=== PATIENT | male | born 1955 | race Caucasian/White ===

== ENCOUNTER 2025-01-29 14:03 | Inpatient (IN) | payer OTHER ==
[~2025-01-29] VITALS: Ht 170.2 cm; Wt 95.1 kg
--- NOTE | 2025-01-29 14:25 | ED.PDOC ---
History of Present Illness HPI Comments 69 year old male brought in by EMS presents to the ED with a chief complaint of elevated troponin onset today. Per EMS, patient was at [facility] urgent care, elevated troponin of 0.94 with upper limit of .05, was transferred to ED. Patient states he is experiencing back pain, radiates to neck, headache and fa tigue. He noticed pain worsens with movement. He states he had "open heart surgery" but denies any cardiac medical history. At urgent care, he tested negative for COVID, Influenza A/B.PMHx cancer, HTN, HLD. Denies chest pain, shortness of breath, nausea, vomiting, diarrhea, dizziness. No other symptoms or modifying factors present at this time. Chief Complaint: Abnormal LAB's Time Seen by MD: 14:11 Primary Care Provider: MINI Garcia Notes: Medications, Allergies Allergies: Coded Allergies: NO KNOWN ALLERGIES (Unverified , 05/08/16) Information Source: Patient, Emergency Med Personnel Mode of Arrival: EMS Severity: Moderate Timing: Hours Duration: Since onset Prehospital treatment: None Past Medical History PAST MEDICAL HISTORY: Cancer, High Lipids, HTN Surgical History: CABG Family History Family History: No family hx of Cancer, No family hx of DM, No family hx of HTN Social History Smoker: Non-Smoker Alcohol: Denies ETOH Use Drugs: Denies Drug Use Lives In: Home Constitutional: denies: chills, diaphoresis, fatigue, fever, malaise, sweats, weakness, others EENTM: denies: blurred vision, double vision, ear bleeding, ear discharge, ear drainage, ear pain, ear ringing, eye pain, eye redness, hearing loss, mouth pain, mouth swelling, nasal discharge, nose bleeding, nose congestion, nose pa in, photophobia, tearing, throat pain, throat swelling, voice changes, others Respiratory: denies: cough, hemoptysis, orthopnea, SOB at rest, shortness of breath, SOB with excertion, stridor, wheezing, others Cardiovascular: denies: chest pain, dizzy spells, diaphoresis, Dyspnea on exertion, edema, irregular heart beat, left arm pain, lightheadedness, palpitations, PND, syncope, others Gastrointestinal: denies: abdomen distended, abdominal pain, blood streaked bowels, constipated, diarrhea, dysphagia, difficulty swallowing, hematemesis, melena, nausea, poor appetite, poor fluid intake, rectal bleeding, rectal pain, vomiting, others Genitourinary: denies: burning, dysuria, flank pain, frequency, hematuria, incontinence, penile discharge, penile sore, pain, testicle pain, testicle swelling, urgency, others Neurological: reports: headache; denies: dizziness, fainting, left sided numb ness, left sided weakness, numbness, paresthesia, pre-existing deficit, right sided numbness, right sided weakness, seizure, speech problems, tingling, tremors, weakness, others Musculoskeletal: reports: back pain, neck pain; denies: gout, joint pain, joint swelling, muscle pain, muscle stiffness, others Integumetry: denies: bruises, change in color, change in hair/nails, dryness, laceration, lesions, lumps, rash, wounds, others Allergic/Immunocompromised: denies: Difficulty Healing, Frequent Infections, Hives, Itching, others Hematologic/Lymphatic: denies: anemia, blood clots, easy bleeding, easy bruising, swollen glands, others Endocrine: denies: excessive hunger, excessive sweating, excessive thirst, excessive urination, flushing, intolerance to cold, intolerance to heat, unexplained weight gain, unexplained weight loss, others Psychiatric: denies: anxiety, bipolar disorder, depression, hopeless, panic disorder, schizophrenia, sleepless, suicidal, others All Other Systems: Reviewed and Negative Physical Exam General Appearance: No Apparent Distress, Normal HEENT: Normal ENT Inspection, Pharynx Normal, TMs Normal Neck: Full Range of Motion, Non-Tender, Normal, Normal Inspection Respiratory: Chest Non-Tender, Lungs Clear, No Accessory Muscle Use, No Respiratory Distress, Normal Breath Sounds Cardiovascular: No Edema, No JVD, No Murmur, No Gallop, Normal Peripheral Pulses, Regular Rate/Rhythm Breast Exam: Deferred Gastrointestinal: No Organomegaly, Non Tender, No Pulsatile Mass, Normal Bowel Sounds, Soft Genitalia: Deferred Pelvic: Deferred Rectal: Deferred Extremities: No calf tenderness, Normal capillary refill, Normal inspection, Normal range of motion, Non-tender, No pedal edema Musculoskeletal : Apperance: Normal Neurologic: Alert, puddler pile driving II-XII nml as Tested, No Motor Deficits, Normal Affect, Normal Mood, No Sensory Deficits Cerebellar Function: Normal Reflexes: Normal Skin: Dry, Normal Color, Warm Lymphatic: No Adenopathy Was a procedure done? Was a procedure done?: No EKG EKG #1: Cardiac Rhythm: ST (105 bpm) ST: Inf, Infarct Comments multiple premature complexes. Abnormal R-wave progression, late transition. Probable inferior infract. Lateral leads are also involved. Baseline wander in leads II, aVF. No changes from urgent care EKG. EKG #2: Cardiac Rhythm: ST (111) ST: Inf, Infarct Comments multiple premature complexes vent & supraven. Abnormal R-wave progression, late transition. Probable inferior infract. Baseline wander in leads II. No changes from urgent care EKG. Differential Dx Considerations may include: acs, thoracic aortic dissection, pneumonia, musculoskeletal pain, PE, medias tinitis, mediastinal mass, HH, esophagitis X-Ray, Labs, Meds, VS Vital Signs Date Time Temp Pulse Resp B/P (MAP) Pulse Ox O2 Delivery O2 Flow Rate FiO2 01/29/25 15:48 96 19 115/66 01/29/25 14:06 105 01/29/25 14:05 99.0 72 18 169/79 (109) 97 99.0 Lab Test 01/29/25 16:05 01/29/25 15:24 01/29/25 15:07 01/29/25 14:27 Range/Units Lactic Acid Level 1.8 0.4-2.0 mmol/L Troponin I High Sensitivity 1851 *H 1804 *H </=54 ng/L Urine Color Light-yellow Yellow Urine Clarity Clear Clear Urine pH 6.0 5.0-9.0 Urine Specific Herald 1.015 1.001-1.035 Urine Protein Trace H Negative Urine Ketones Negative Negative Urine Blood 2+ H Negative /uL Urine Nitrite Negative Negative Urine Bilirubin Negative Negative Urine Urobilinogen Normal Negative mg/dL Urine Leukocyte Esterase Negative Negative /uL Urine RBC 1 0 - 3 /hpf Urine Microscopic WBC < 1 0-3 /HPF Urine Squamous Epithelial Cells None seen <5 /hpf Urine Bacteria None seen None Seen /hpf Urine Hyaline Casts Few 0 - 2 /lpf Urine Glucose Normal Normal mg/dL White Blood Count 22.1 H 4.4-10.8 10^3/uL Red Blood Count 5.28 4.5-5.90 10^6/uL Hemoglobin 14.4 13.5-17.5 g/dL Hematocrit 42.1 41.0-53.0 % Mean Corpuscular Volume 79.7 L 80.0-100.0 fL Mean Corpuscular Hemoglobin 27.3 L 28.0-32.0 pg Mean Corpuscular Hemoglobin Concent 34.2 32.0-36.0 g/dL Red Cell Distribution Width 15.0 H 11.8-14.3 % Platelet Count 234 140-450 10^3/uL Mean Platelet Volume 8.0 6.9-10.8 fL Neutrophils (%) (Auto) 82.5 H 37.0-80.0 % Lymphocytes (%) (Auto) 5.0 L 10.0-50.0 % Monocytes (%) (Auto) 11.9 0.0-12.0 % Eosinophils (%) (Auto) 0.0 0.0-7.0 % Basophils (%) (Auto) 0.6 0.0-2.0 % Neutrophils # (Auto) 18.3 H 1.6-8.6 10 ^3/uL Lymphocytes # (Auto) 1.1 0.4-5.4 10 ^3/uL Monocytes # (Auto) 2.6 H 0-1.3 10 ^3/uL Eosinophils # (Auto) 0 0-0.8 10 ^3/uL Basophils # (Auto) 0.1 0-0.2 10 ^3/uL Nucleated Red Blood Cells 0.0 % Sodium Level 133 L 136-145 mmol/L Potassium Level 3.9 3.5-5.1 mmol/L Chloride Level 101 98-107 mmol/L Carbon Dioxide Level 24 20-31 mmol/L Anion Gap 8 5-15 Blood Urea Nitrogen 26 H 9-23 mg/dL Creatinine 0.99 0.700-1.30 mg/dL Glomerular Filtration Rate Calc 81 >90 mL/min BUN/Creatinine Ratio 26.3 H 10.0-20.0 Serum Glucose 137 H 74-106 mg/dL Calcium Level 9.7 8.7-10.4 mg/dL Current Medications Medications (Trade) Dose Ordered Sig/Aleyda Route Start Time Stop Time Status Last Admin Morphine Sulfate 5 mg ONCE ONCE IV 01/29/25 14:30 01/29/25 14:31 DC 01/29/25 15:48 Ondansetron HCl (Zofran) 4 mg ONCE ONCE IV 01/29/25 14:30 01/29/25 14:31 DC 01/29/25 15:47 Aspirin 325 mg ONCE ONCE PO 01/29/25 14:30 01/29/25 14:31 DC 01/29/25 15:47 Sodium Chloride 2,000 ml @ 2,000 mls/hr ONCE ONCE IV 01/29/25 15:30 01/29/25 16:29 DC 01/29/25 16:59 Vancomycin HCl 250 ml @ 250 mls/hr Q1H IV 01/29/25 16:00 01/29/25 17:59 DC 01/29/25 18:02 Time of 1ST Reevaluation: 14:41 Reevaluation 1ST: Unchanged Time of 2ND Reevaluation: 15:29 Reevaluation 2ND: Improved Patient Education/Counseling: Diagnosis, Treatment, Prognosis, Need For Follow Up Family Education/Counseling: No Family Present Additional Information The following tests were ordered, and results were reviewed by me: EKG -x3, TROP -x3, CBC, BMP, XY CHEST, CT ANGIO CHEST CONTRAST Additional Information was gathered from interviewing the following independent historians: EMS I reviewed and agreed with the following test results read by other providers: XY CHEST, CT ANGIO CHEST CONTRAST I discussed treatment and results with medical personnel and: Patient Departure 1 Departure Time of Disposition: 18:09 Impression: Primary Impression: NSTEMI (non-ST elevated myocardial infarction) Disposition: ADMITTED INPATIENT Admit to: ICU Condition: Critical Critical Care Note Critical Care Time?: Yes (55 min-critical care time only) Critical care comment: Due to concerns for patients condition deteriorating, the care required my highest level of attention and readiness to intervene. I assessed the patient, reviewed the medical records, ordered the appropriate tests and treatments, then reassessed for results and responsiveness. I communicated with medical personnel and consultants and formulated a plan of care. Total critical care time excludes any procedures Stability Stability form required: No Heart Score Heart Score: Heart Score Response (Comments) Value History Highly Suspicious 2 EKG Repolarization Disturb 1 Age >65 2 Risk Factors >3 or Hx ASHD 2 Troponin >3 x's Normal limit 2 Total 9 I personally scribed for MIGNON BRIAN MD ([email or web address]) on 01/29/25 at 14:25. Electronically submitted by Krista Cordero ([email or web address]). I personally scribed for MIGNON BRIAN MD ([facility]) on 01/29/25 at 14:26. Electronically submitted by Krista Cordero ([email or web address]). I personally scribed for MIGNON BRIAN MD ([facility]) on 01/29/25 at 14:32. Electronically submitted by Krista Cordero ([email or web address]). I personally scribed for MIGNON BRIAN MD ([facility]) on 01/29/25 at 14:41. Electronically submitted by Krista Cordero ([email or web address]). MIGNON BRIAN MD Jan 29, 2025 14:25
[2025-01-29 14:39] LABS: Basophils # (auto) 0.1 10 ^3/uL (0-0.2); Eosinophils # (auto) 0 10 ^3/uL (0-0.8); Lymphocytes # (auto) 1.1 10 ^3/uL (0.4-5.4)
[2025-01-29 14:41] LABS: Basophils % (auto) 0.6 % (0.0-2.0); Hematocrit 42.1 % (41.0-53.0); Hemoglobin 14.4 g/dL (13.5-17.5); Mean Corpuscular Hemoglobin 27.3 pg (28.0-32.0); Mean Corpuscular Hgb Conc. 34.2 g/dL (32.0-36.0); Mean Corpuscular Volume 79.7 fL (80.0-100.0); Monocytes # (auto) 2.6 10 ^3/uL (0-1.3); Monocytes % (auto) 11.9 % (0.0-12.0); Neutrophils # (auto) 18.3 10 ^3/uL (1.6-8.6); Neutrophils % (auto) 82.5 % (37.0-80.0); Platelet Count (auto) 234 10^3/uL (140-450); Red Blood Cells 5.28 10^6/uL (4.5-5.90); White Blood Cell 22.1 10^3/uL (4.4-10.8)
[2025-01-29 14:48] LABS: Chloride 101 mmol/L (98-107); Potassium 3.9 mmol/L (3.5-5.1)
[2025-01-29 14:49] LABS: Anion Gap 8 (5-15); Carbon Dioxide 24 mmol/L (20-31)
[2025-01-29 14:50] LABS: Calcium 9.7 mg/dL (8.7-10.4)
[2025-01-29 14:54] LABS: Sodium 133 mmol/L (136-145)
[2025-01-29 14:55] LABS: BUN/Creatinine Ratio 26.3 (10.0-20.0)
[2025-01-29 14:59] LABS: Blood Urea Nitrogen 26 mg/dL (9-23); Glucose 137 mg/dL (74-106)
[2025-01-29 15:30] VITALS: PULSE 96; RESP 19; O2SAT 97
[2025-01-29] MEDS ORDERED: VANCOMYCIN PER PHARMACY 0 MG IV SCH (15:30)
[2025-01-29 15:35] LABS: Urine Bacteria None Seen /hpf (None Seen)
[2025-01-29] MEDS: ONDANSETRON HCL 4 MG/2 ML VIAL IV ONE (15:47)
[2025-01-29] MEDS: ASPirin 325 MG TAB PO ONE (15:47)
[2025-01-29 15:48] LABS: Urine Blood 2+ /uL (Negative); Urine Clarity Clear (Clear); Urine Color Light-Yellow (Yellow); Urine Hyaline Cast FEW /lpf (0 - 2); Urine Protein, UAD TRACE (Negative); Urine Specific Gravity 1.015 (1.001-1.035); Urine Squamous Epithelial Cell None Seen /hpf (<5); Urine Urobilinogen Normal (Negative)
[2025-01-29] MEDS: MORPHINE SULFATE 4 MG/ML SYR/VIAL IV ONE (15:48)
[2025-01-29 15:50] LABS: Urine WBC < 1 /HPF (0-3)
--- NOTE | 2025-01-29 16:39 | DVH ---
INDICATION: shoulder pain, elevated trop from UC TECHNIQUE: Frontal view of the chest. COMPARISON: None FINDINGS: . The heart and mediastinal contours are grossly unremarkable. There is no evidence of pleural disea se. The lungs are clear. The bony structures of the chest are intact without fracture. IMPRESSION: 1. No evidence of acute disease.
[2025-01-29] MEDS: SODIUM CHLORIDE 0.9% 2,000 ML IV ONE (16:59)
[2025-01-29] MEDS: VANCOMYCIN 1GM/250ML KIT 250 ML IV SCH (16:59)
[2025-01-29] MEDS: IOHEXOL 350 MG/ML 100ML IJ ONE (16:59)
--- NOTE | 2025-01-29 19:14 | ECG ---
[facility] Test Date: 2025-01-29 Test Time: 14:06:29 Pat Name: CHANDAN MELTON Department: ED Room: 0245T Gender: M Manager Office Services: MICHELLE : 1955 Requested By: MIGNON BRIAN Order Number: [id number] Reading MD: Chandan Cook Measurements Intervals Yale Rate: 105 P: 40 AK: 180 QRS: -56 QRSD: 103 T: 96 QT: 382 QTc: 506 Interpretive Statements Sinus tachycardia Multiple premature complexes, vent & supraven Abnormal R-wave progression, late transition Probable inferior infarct, recent Lateral leads are also involved Baseline wander in lead(s) II,aVF Electronically Signed On 01-30-2025 16:12:38 PDT by Chandan Cook Please click the below link to view image of tracing.
[2025-01-29] MEDS ORDERED: DOCUSATE SOD 100 MG CAP PO PRN (20:15)
[2025-01-29] MEDS ORDERED: ONDANSETRON HCL 4 MG/2 ML VIAL IV PRN (20:15)
[2025-01-29 20:47] VITALS: PULSE 91; RESP 20; O2SAT 95
--- NOTE | 2025-01-29 21:15 | DVH ---
History: r/o thoracic aneurism Comparison: None TECHNIQUE: Using a slice CT scanner volumetric data acquisition of chest was obtained following intra venous administration of intravenous 100 ml contrast without any reported adverse effects. Axial imag es were reconstructed and additional sagittal and coronal images were reformatted. 3D/MIP images were performed and reviewed for reporting. Radiation Dose Information: CT Dose: CTDI volume is 35.52 mGy. Dose-length product is 1043.91 mGy*cm Findings: Vascular: Aneurysmal dilatation of the tubular ascending aorta measuring up to 4.2 cm. No evidence of dissectio n. Chest: Pulmonary Arteries: There are no filling defects within main pulmonary arteries. There is normal dim ensional of main PA. Lungs: Bibasilar atelectasis/scarring. There is no peripheral pulmonary infarction, consolidation, pl eural effusion, or right heart strain. There is no pneumothorax or pneumomediastinum. Lymph Nodes: There is no significant intrathoracic or axillary lymphadenopathy on CT size criteria. Lower Neck: Visualized portions of the thyroid gland are unremarkable. Mediastinum: Heart size is normal. There is no pericardial effusion. Musculoskeletal: No aggressive focal bony lesions, acute fractures or dislocation. 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 Aneurysmal dilatation of the tubular ascending aorta measuring up to 4.2 cm. No evidence of disse ction. 2. No acute findings identified 3. All CT scans at this medical facility are performed using dose modulation techniques as appropriat e to a performed exam including the following: Automated exposure control was utilized; adjustment of the MA and/or KV according to patient size; and use of iterative reconstruction technique.
[2025-01-29] MEDS: SODIUM CHLORIDE 0.9% 1,000 ML IV SCH (21:39)
[2025-01-29] MEDS: HYDROcodone-ACET 5/325MG TAB PO PRN (22:04)
[2025-01-29] MEDS: HEPARIN SODIUM (PORCINE) 5000 UNITS/ML 1ML VIAL SC SCH (22:05)
[2025-01-29] MEDS: PIPERACILLIN-TAZO 4.5GM 100 ML IV SCH (22:06)
[2025-01-29] MEDS: ATORVASTATIN 20 MG TAB PO SCH (22:06)
--- NOTE | 2025-01-29 22:08 | DVHHP2 ---
History of Present Illness Reason for Visit: NSTEMI (non-ST elevated myocardial infarction) History of Present Illness The patient is a 69-year-old male with past medical history of cancer, hyperlipi demia, and hypertension who presented to [facility] ED with complaint of generalized weakness. Patient was at [facility] for evaluation of elevated troponin of 0.94, having back pain, radiating to neck, headache, fatigue, getting worse today that prompted this visit. Patient was seen and evaluated in the ED, laboratory data shows WBC 22.1, platelets 234, sodium 133, potassium 3.9, BUN 26, creatinine 0.99, GFR 81, glucose 137, troponin 1851. 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 Patient was started on heparin drip, please see medication orders section in the computer. On my assessment, patient denied chest pain, no headache, no dizziness, no diaphoresis, no shortness of breaths, no nausea, no vomiting, no fever, no chills. Patient was admitted for further evaluation and medical management. Past Medical History Cancer, High Lipids, HTN Past Surgical History CABG Family History Reviewed, noncontributory to the management of this case. Past Social History The patient lives at home, denies smoking, alcohol or illicit drugs abuse. Review of Systems Constitutional: Yes: Weakness; No: Fever, Chills, Sweats, Malaise, Other Eyes: No: Pain, Vision change, Conjunctivae inflammation, Eyelid inflammation, Other, Redness ENT: No: Ear pain, Ear discharge, Nose pain, Nose discharge, Nose congestion, Mouth pain, Mouth swelling, Throat pain, Throat swelling, Other Respiratory: No: Cough, Dry, Shortness of breath, SOB with excertion, Wheezing, Hemoptysis, Pleuritic Pain, Sputum, Wheezing, Other Cardiovascular: No: Chest Pain, Palpitations, Orthopnea, Paroxysmal Noc. Dyspnea, Edema, Lt Headedness, Other Gastrointestinal: No: Nausea, Vomiting, Abdominal Pain, Diarrhea, Constipation, Melena, Hematochezia, Other Genitourinary: No Dysuria, No Frequency, No Incontinence, No Hematuria, No Retention, No Other Musculoskeletal: neck pain, back pain; No: other, shoulder pain, arm pain, hand pain, leg pain, foot pain Skin: No: Rash, Lesions, Jaundice, Bruising, Other Neurological: No: Weakness, Numbness, Incoordination, Change in speech, Confusion, Seizures, Other Allergies: Coded Allergies: NO KNOWN ALLERGIES (Unverified , 05/08/16) Medications Current Medications Medications Dose Ordered Sig/Aleyda Route Start Time Stop Time Status Last Admin Dose Admin Vancomycin HCl 0 ml @ 0 mls/hr UD IV 01/29/25 15:30 Piperacillin Sod/ Tazobactam Sod 100 ml @ 25 mls/hr Q8HR IV 01/29/25 22:00 01/29/25 22:06 25 MLS/HR Heparin Sodium (Porcine) 5,000 units Q12HR SC 01/29/25 22:00 01/29/25 22:05 5,000 UNITS Atorvastatin Calcium 40 mg HS PO 01/29/25 22:00 01/29/25 22:06 40 MG Hydralazine HCl 10 mg Q6HP PRN IV 01/29/25 20:15 Sodium Chloride 1,000 ml @ 60 mls/hr [id number] IV 01/29/25 20:15 01/29/25 21:39 60 MLS/HR Acetaminophen/ Hydrocodone Bitart 1 tab Q4HP PRN PO 01/29/25 20:15 01/29/25 22:04 1 TAB Ondansetron HCl 4 mg Q4HP PRN IV 01/29/25 20:15 Docusate Sodium 100 mg BIDPRN PRN PO 01/29/25 20:15 Acetaminophen 650 mg Q6HP PRN PO 01/29/25 20:15 Heparin Sodium/ Dextrose 250 ml @ 11.64 mls/ hr [id number] IV 01/29/25 22:15 UNV Exam Vital Signs Vital Signs Date Time Temp Pulse Resp B/P (MAP) Pulse Ox O2 Delivery O2 Flow Rate FiO2 01/29/25 20:00 99.0 89 11 152/91 (111) 96 99.0 01/29/25 15:30 Room Air* 0 21 General Appearance: Alert, Oriented X3, Cooperative, No acute distress HEENT: Atraumatic, PERRLA, EOMI, Mucous membr. moist/pink Respiratory: Clear to auscultation, Normal air movement Cardiovascular: Regular rate, Normal S1, Normal S2, No murmurs Abdominal: Normal bowel sounds, Soft, No tenderness, No hepatospenomegaly, No masses Extremities: No clubbing, No cyanosis, No edema, Normal pulses, No tenderness/swelling Skin: No rashes, No breakdown, No significant lesion Neuro: Normal speech, Normal tone, Sensation intact, Cranial nerves 3-12 NL, Reflexes 2+, Other (Generalized weakness) Psych/Mental Status: Mental status NL, Mood NL Labs/Xrays Labs Test 01/29/25 19:36 01/29/25 16:05 01/29/25 15:07 01/29/25 14:27 Range/Units Troponin I High Sensitivity 2071 *H </=54 ng/L Lactic Acid Level 1.8 0.4-2.0 mmol/L Urine Color Light-yellow Yellow Urine Clarity Clear Clear Urine pH 6.0 5.0-9.0 Urine Specific [place] 1.015 1.001-1.035 Urine Protein Trace H Negative Urine Ketones Negative Negative Urine Blood 2+ H Negative /uL Urine Nitrite Negative Negative Urine Bilirubin Negative Negative Urine Urobilinogen Normal Negative mg/dL Urine Leukocyte Esterase Negative Negative /uL Urine RBC 1 0 - 3 /hpf Urine Microscopic WBC < 1 0-3 /HPF Urine Squamous Epithelial Cells None seen <5 /hpf Urine Bacteria None seen None Seen /hpf Urine Hyaline Casts Few 0 - 2 /lpf Urine Glucose Normal Normal mg/dL White Blood Count 22.1 H 4.4-10.8 10^3/uL Red Blood Count 5.28 4.5-5.90 10^6/uL Hemoglobin 14.4 13.5-17.5 g/dL Hematocrit 42.1 41.0-53.0 % Mean Corpuscular Volume 79.7 L 80.0-100.0 fL Mean Corpuscular Hemoglobin 27.3 L 28.0-32.0 pg Mean Corpuscular Hemoglobin Concent 34.2 32.0-36.0 g/dL Red Cell Distribution Width 15.0 H 11.8-14.3 % Platelet Count 234 140-450 10^3/uL Mean Platelet Volume 8.0 6.9-10.8 fL Neutrophils (%) (Auto) 82.5 H 37.0-80.0 % Lymphocytes (%) (Auto) 5.0 L 10.0-50.0 % Monocytes (%) (Auto) 11.9 0.0-12.0 % Eosinophils (%) (Auto) 0.0 0.0-7.0 % Basophils (%) (Auto) 0.6 0.0-2.0 % Neutrophils # (Auto) 18.3 H 1.6-8.6 10 ^3/uL Lymphocytes # (Auto) 1.1 0.4-5.4 10 ^3/uL Monocytes # (Auto) 2.6 H 0-1.3 10 ^3/uL Eosinophils # (Auto) 0 0-0.8 10 ^3/uL Basophils # (Auto) 0.1 0-0.2 10 ^3/uL Nucleated Red Blood Cells 0.0 % Sodium Level 133 L 136-145 mmol/L Potassium Level 3.9 3.5-5.1 mmol/L Chloride Level 101 98-107 mmol/L Carbon Dioxide Level 24 20-31 mmol/L Anion Gap 8 5-15 Blood Urea Nitrogen 26 H 9-23 mg/dL Creatinine 0.99 0.700-1.30 mg/dL Glomerular Filtration Rate Calc 81 >90 mL/min BUN/Creatinine Ratio 26.3 H 10.0-20.0 Serum Glucose 137 H 74-106 mg/dL Calcium Level 9.7 8.7-10.4 mg/dL PATIENT: CHANDAN MELTON ACCT: [id number] UNIT: [id number] : 1955 LOC: ER ROOM / BED: / AGE / SEX: 69 / M ADM STATUS: REG ER SERVICE 1416 ORDERING PHYSICIAN: MIGNON BRIAN MD PROCEDURE(s): CTACH - CT ANGIO CHEST CONTRAST REASON: r/o thoracic aneurism ORDER NUMBER(s): [id number], ACCESSION NUMBER(s): [id number] History: r/o thoracic aneurism Comparison: None TECHNIQUE: Using a slice CT scanner volumetric data acquisition of chest was obtained following intravenous administration of intravenous 100 ml contrast without any reported adverse effects. Axial images were reconstructed and additional sagittal and coronal images were reformatted. 3D/MIP images were performed and reviewed for reporting. Radiation Dose Information: CT Dose: CTDI volume is 35.52 mGy. Dose-length product is 1043.91 mGy*cm Findings: Vascular: Aneurysmal dilatation of the tubular ascending aorta measuring up to 4.2 cm. No evidence of dissection. Chest: Pulmonary Arteries: There are no filling defects within main pulmonary arteries. There is normal dimensional of main PA. Lungs: Bibasilar atelectasis/scarring. There is no peripheral pulmonary infarction, consolidation, pleural effusion, or right heart strain. There is no pneumothorax or pneumomediastinum. Lymph Nodes: There is no significant intrathoracic or axillary lymphadenopathy on CT size criteria. Lower Neck: Visualized portions of the thyroid gland are unremarkable. Mediastinum: Heart size is normal. There is no pericardial effusion. Musculoskeletal: No aggressive focal bony lesions, acute fractures or dislocation. 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 Aneurysmal dilatation of the tubular ascending aorta measuring up to 4.2 cm. No evidence of dissection. 2. No acute findings identified ORDERING PHYSICIAN: MIGNON BRIAN MD PROCEDURE(s): CXRP - CHEST PORTABLE REASON: shoulder pain, elevated trop from ORDER NUMBER(s): [id number], ACCESSION NUMBER(s): [id number] INDICATION: shoulder pain, elevated trop from UC TECHNIQUE: Frontal view of the chest. COMPARISON: None FINDINGS: The heart and mediastinal contours are grossly unremarkable. There is no evidence of pleural disease. The lungs are clear. The bony structures of the chest are intact without fracture. IMPRESSION: 1. No evidence of acute disease. Assessment/Plan Assessment/Plan NSTEMI (non-ST elevated myocardial infarction) Generalized weakness Leukocytosis, unspecified Plan 1. Admit to telemetry unit 2. Breathing treatment 3. Pain control management 4. IV antibiotic management 5. Management of fluids and electrolytes 6. Consultation for Cardiology 7. Diagnostic test chest x-ray 8. DVT prophylaxis on heparin drip 9. Repeat labs CBC, CMP in a.m. 10. Home medication reviewed and reconciled 11. Continue with current medical management 12. Treatment plan discussed with patient and RN. Patient verbalized understanding. Plan discussed with: Patient, Other (RN) My Orders Orders - JOSE RAMON BROWN DNP Procedure Category Date Status Time * Cardiology Consult CONS 01/29/25 Transmitted 20:03 Heparin Sodium PHA 01/29/25 In Process (Porcine) 22:00 Atorvastatin (Lipitor) PHA 01/29/25 In Process 22:00 Hydralazine Injection PHA 01/29/25 In Process (Apresoline Inject 20:15 Allergies SHAMAR 01/29/25 In Process 20:03 Code Status CODE 01/29/25 Transmitted 20:03 Sodium Chloride 0.9% PHA 01/29/25 In Process 20:15 Oxygen Per Hour RT 01/29/25 Transmitted 20:03 Hydrocodone-Acet PHA 01/29/25 In Process 5/325mg Tab (Turner 20:15 Ondansetron Hcl PHA 01/29/25 In Process (Zofran) 20:15 Docusate Sodium PHA 01/29/25 In Process Capsule (Colace 20:15 Complete Blood Count LAB 01/30/25 Verified 04:00 Comprehensive LAB 01/30/25 Verified Metabolic Panel 04:00 Cardiac DIET 01/30/25 Transmitted Diet-2gna,Lofat,Lochol Breakfast Condition: Serious SHAMAR 01/29/25 In Process 20:03 Acetaminophen Tablet PHA 01/29/25 In Process (Tylenol Tablet) 20:15 Bedrest With Bathroom SHAMAR 01/29/25 In Process Privileg 20:03 Sequential SHAMAR 01/29/25 In Process Compression Device Platelet Monitoring SHAMAR 01/29/25 In Process 22:03 Heparin Per SHAMAR 01/29/25 In Process Standardized Proce 22:03 Discontinue All Im SHAMAR 01/29/25 In Process Injections 22:03 PTPTT LAB 01/29/25 Logged 22:03 Heparin Drip/D5w PHA 01/29/25 Logged 100units/Ml 22:15 Stat Ekg For Chest SHAMAR 01/29/25 In Process Pain 22:03 Problem List: (1) NSTEMI (non-ST elevated myocardial infarction) (2) Generalized weakness (3) Leukocytosis, unspecified Date of Service: Jan 29, 2025 Billing Provider: JOSE RAMON BROWN DNP Common Visit Codes: [id number] INP/OBS CARE (HIGH) JOSE RAMON BROWN DNP Jan 29, 2025 22:08
[2025-01-29] MEDS ORDERED: NITROGLYCERIN 0.4 MG SL TAB SL PRN (22:15)
[2025-01-29 23:16] LABS: INR 1.03 (0.9-1.15); Partial Thromboplastin Time 31.8 SEC (24.5-34.5); Prothrombin Time 10.9 sec (9.3-11.8)
[2025-01-29 23:41] VITALS: BP 156/57; PULSE 82; RESP 18; TEMP 98.1; O2SAT 96
[2025-01-29 23:47] VITALS: PULSE 82; RESP 18; O2SAT 96
[2025-01-30] VITALS (8 sets, daily range): BP systolic 107–156; BP diastolic 57–80; PULSE 16–92; RESP 14–20; TEMP 97.7–100.3; O2SAT 80–97
--- NOTE | 2025-01-30 00:06 | CONS ---
Pharmacy Clinical Information: Heparin for ACS indication (elevated trop) provider: Girish Wright wt=99.4 kg on bedscale per RN--she will update Pt received dose of SQ heparin at 2205 so no bolus Baseline labs @ 2220: H/H=14.4/42.1, JKT=233 PT/INR=10.9/1.03 PTT=31.8 RM 245B Notified RN to start rate at 10 ml/ws=6726 units/hr Next PTT @ 0630 Chemistry Test 01/29/25 14:27 Calcium Level 9.7 mg/dL (8.7-10.4) Coagulation Test 01/29/25 22:20 Prothrombin Time 10.9 sec (9.3-11.8) Prothrombin Time INR 1.03 (0.9-1.15) Activated Partial Thromboplast Time 31.8 SEC (24.5-34.5) RAMOS BROWN Jan 30, 2025 00:06
[2025-01-30] MEDS: HEPARIN DRIP/D5W 100UNITS/ML 250 ML IV SCH ×2 (00:30→10:29)
[2025-01-30] MEDS: ACETAMINOPHEN 325 MG TAB PO PRN (01:09)
[2025-01-30] MEDS: hydrALAZINE HCL 20 MG/ML VL IV PRN (01:16)
[2025-01-30] MEDS ORDERED: MORPHINE SULFATE INJ 2 MG/ml SYRG IM ONE (01:45)
[2025-01-30] MEDS: MORPHINE SULFATE INJ 2 MG/ml SYRG IV ONE (03:56)
[2025-01-30 05:59] LABS: Basophils # (auto) 0 10 ^3/uL (0-0.2); Basophils % (auto) 0.1 % (0.0-2.0); Eosinophils # (auto) 0 10 ^3/uL (0-0.8); Hematocrit 38.7 % (41.0-53.0); Hemoglobin 13.2 g/dL (13.5-17.5); Lymphocytes % (auto) 5.7 % (10.0-50.0); Mean Corpuscular Hemoglobin 27.8 pg (28.0-32.0); Mean Corpuscular Hgb Conc. 34.1 g/dL (32.0-36.0); Mean Corpuscular Volume 81.4 fL (80.0-100.0); Monocytes # (auto) 2.3 10 ^3/uL (0-1.3); Monocytes % (auto) 13.4 % (0.0-12.0); Neutrophils # (auto) 13.7 10 ^3/uL (1.6-8.6); Neutrophils % (auto) 80.8 % (37.0-80.0); Platelet Count (auto) 197 10^3/uL (140-450); Red Blood Cells 4.76 10^6/uL (4.5-5.90); Red Cell Distribution Width 15.4 % (11.8-14.3)
[2025-01-30 06:17] LABS: INR 1.03 (0.9-1.15); Partial Thromboplastin Time 45.2 SEC (24.5-34.5); Prothrombin Time 10.9 sec (9.3-11.8)
[2025-01-30 06:24] LABS: Alanine Aminotransferase 31 U/L (7-40); Alkaline Phosphatase 89 U/L (46-116); Anion Gap 11 (5-15); Aspartate Aminotransferase 37 U/L (13-40); BUN/Creatinine Ratio 18.4 (10.0-20.0); Blood Urea Nitrogen 16 mg/dL (9-23); Calcium 9.5 mg/dL (8.7-10.4); Carbon Dioxide 23 mmol/L (20-31); Chloride 103 mmol/L (98-107); Potassium 3.5 mmol/L (3.5-5.1); Sodium 137 mmol/L (136-145); Total Protein 6.3 g/dL (5.7-8.2)
[2025-01-30 06:25] LABS: Bilirubin, Total 0.6 mg/dL (0.2-1.0)
[2025-01-30 06:30] LABS: Glucose 127 mg/dL (74-106)
[2025-01-30 08:59] LABS: Magnesium 1.9 mg/dL (1.6-2.6)
[2025-01-30] MEDS: VANCOMYCIN 1GM/250ML KIT 250 ML IV SCH (12:55)
--- NOTE | 2025-01-30 14:46 | DVHSR ---
APPROVED REPORT EXAM: Two-dimensional and M-mode echocardiogram with Doppler and color Doppler. Blood Pressure: 121/80 mmHg INDICATION Evaluate cardiac fucntion, wall motion Surgery/Intervention Valve Replacement: Bioprosthetic RISK FACTORS Height: 67, Weight: 219 DIMENSIONS LVDd4.9 (3.8-5.7cm)LA (2D)4.7 (1.9-4.0cm)Aortic Root3.9 (2.0-3.7cm) LVDs3.5 (2.5-4.0cm)LA (MM) (1.9-4.0cm)Aortic Cusp Exc2.1 (1.5-2.0cm) EF (%) 55.0 (55-70%)Rt. Atrium4.0 (1.9-4.0cm)Asc. Aorta cm IVSd1.3 (0.7-1.1cm)RV (D) (1.8-2.4cm) PWd1.6 (0.7-1.1cm) Mitral Valve MitralMitral Stenosis E wave1.46m/sMV Mean GR.mmHg A wave0.98m/sMV Peak GR.160mmHg E/A ratio1.52D MVAcm2 DECEL [id number] 1/2 Timems Aortic Valve Aortic ValveAortic Stenosis V11.37m/Ajit Mean GR.17mmHg V22.70m/Ajit Peak GR.29mmHg LVOT Diameter2.1 (1.8-2.4cm)Doppler AVA1.76cm2 Pulmonic Valve V21.31m/s Tricuspid Valve TR Velocity3.68m/s [id number] Conclusion Technically good study. Sinus rhythm. Concentric LVH with left atrial enlargement of [id number] degree. Aortic root enlargement. Notably dilated sinuses of Valsalva. Calcified sinuses. Dilated pulmonary artery and right ventricu lar outflow tract. Moderate mitral annular calcification however good excursion of leaflets. Moderate aortic sclerosis. Tricuspid and pulmonic or structurally normal. Left ventricular function is preserved at 55% with normal RV function. There is moderate tricuspid regurgitation. Severe pulmonary hypertension at almost 70 mmHg. Moderat e mitral insufficiency. Trace aortic insufficiency. There is a gradient across the aortic valve of 30 mmHg peak with a mean gradient of17 mmHg consistent with mild aortic stenosis. Aortic valve area calculated at 1.9 cm2 No PE masses or vegetations discernible
--- NOTE | 2025-01-30 15:15 | DVHINCON2 ---
Date Seen: Jan 30, 2025 Referring Physician LETHA Wright Reason for Consultation NSTEMI History of Present Illness This is a 69-year-old male patient who presents to the emergency room with chief complaint of headache, neck pain, back pain and hip pain for one week. He comes to the emergency room for further evaluation. Initial twelve lead electrocardiogram reveals sinus tachycardia PACs and PVCs. Initial troponin l evel of 1804ng/L with current peak level 3628ng/L. Significant past medical history includes severe aortic stenosis status post open heart bioprosthetic aortic valve replacement, hypertension, dyslipidemia, colon cancer undergoing chemotherapy and bowel resection in 2010, and obesity. The patient denies following up with a devulcanizer head in the outpatient setting. Past Medical History Past medical history reviewed. No other significant than mentioned above. Past Surgical History Open heart surgery with bioprosthetic aortic valve replacement in 2022 Colon resection Family History: Patient reports no known family medical history. Family History Family history reviewed. Social History Patient denies any nicotine or tobacco use Patient admits to occasional marijuana use Denies any alcohol use Allergies: Coded Allergies: NO KNOWN ALLERGIES (Unverified , 05/08/16) Home Meds Home medications reviewed. Current Medications Current Medications Medications (Trade) Dose Ordered Sig/Aleyda Route PRN Reason Start Time Stop Time Status Last Admin Vancomycin HCl 0 ml @ 0 mls/hr UD IV 01/29/25 15:30 Piperacillin Sod/ Tazobactam Sod 100 ml @ 25 mls/hr Q8HR IV 01/29/25 22:00 01/30/25 13:57 Vancomycin HCl 250 ml @ 250 mls/hr Q1H IV 01/29/25 16:00 01/29/25 17:59 DC 01/29/25 18:02 Heparin Sodium (Porcine) 5,000 units Q12HR SC 01/29/25 22:00 01/29/25 22:12 DC 01/29/25 22:05 Atorvastatin Calcium (Lipitor) 40 mg HS PO 01/29/25 22:00 01/29/25 22:06 Hydralazine HCl (Apresoline Injection) 10 mg Q6HP PRN IV SBP>150 01/29/25 20:15 01/30/25 01:16 Sodium Chloride 1,000 ml @ 60 mls/hr [id number] IV 01/29/25 20:15 01/30/25 12:55 Acetaminophen/ Hydrocodone Bitart ([place] 5/325MG Tab) 1 tab Q4HP PRN PO MODERATE PAIN (4-6 PAIN SCALE) 01/29/25 20:15 01/30/25 07:29 Ondansetron HCl (Zofran) 4 mg Q4HP PRN IV NAUSEA / VOMITING 01/29/25 20:15 Docusate Sodium (Colace Capsule) 100 mg BIDPRN PRN PO FOR CONSTIPATION 01/29/25 20:15 Acetaminophen (Tylenol Tablet) 650 mg Q6HP PRN PO PAIN SCALE 1-3 OR TEMP>100.4 01/29/25 20:15 01/30/25 01:09 Heparin Sodium/ Dextrose 250 ml @ 10 mls/hr Q24H IV 01/30/25 00:30 01/30/25 09:40 DC 01/30/25 00:30 Nitroglycerin (Ntrostat Sublingual) 0.4 mg Q5MINP PRN SL FOR CHEST PAIN 01/29/25 22:15 Morphine Sulfate 2 mg Q30M PRN IV FOR CHEST PAIN 01/29/25 22:15 Heparin Sodium/ Dextrose 250 ml @ 12 mls/hr [id number] IV 01/30/25 09:40 01/30/25 10:29 Vancomycin HCl 250 ml @ 250 mls/hr Q12H IV 01/30/25 12:00 01/30/25 12:55 Review of Systems Constitutional: No symptom reported Ears, Nose, & Throat: No symptom reported Eyes: No symptom reported Neurological: Headache Pulmonary/Respiratory: No symptoms reported Cardiovascular: No symptom reported Gastrointestinal: No symptom reported Genitourinary: No symptom reported Musculoskeletal: Neck pain, back pain, hip pain Skin: No symptom reported Psychiatric: No symptom reported Endocrine: No symptom reported Hematologic/Lymphatic: No symptom reported Vital Signs Vital Signs Date Time Temp Pulse Resp B/P (MAP) Pulse Ox O2 Delivery O2 Flow Rate FiO2 01/30/25 12:30 97.8 92 16 107/66 (80) 80 97.8 01/30/25 08:00 Room Air* 0 21 Physical Exam General Appearance: Cooperative. Well-developed. Well-nourished. No acute distress. Pulmonary/Respiratory: Clear, bilateral breaths sounds. Cardiovascular/Chest: Regular rate and rhythm. Peripheral Pulses: 2+ Radial (R). 2+ Radial (L). 2+ Pedal (R). 2+ Pedal (L) Abdominal Exam: Normal bowel sounds. Ankle Exam: Negative ankle edema Lower extremities: Negative lower extremity edema Neuro/Mental Status: A/OX4, coherent. Thoughts/Psych: Normal thought pattern. Appropriate mood and affect. Good judgment and insight. Appearance: No acute distress. Skin Exam: Normal inspection. Normal color. Warm and dry. Labs/Diagnostic Data Labs Test 01/30/25 05:35 01/29/25 16:05 01/29/25 15:07 Range/Units White Blood Count 17.0 H 4.4-10.8 10^3/uL Red Blood Count 4.76 4.5-5.90 10^6/uL Hemoglobin 13.2 L 13.5-17.5 g/dL Hematocrit 38.7 L 41.0-53.0 % Mean Corpuscular Volume 81.4 80.0-100.0 fL Mean Corpuscular Hemoglobin 27.8 L 28.0-32.0 pg Mean Corpuscular Hemoglobin Concent 34.1 32.0-36.0 g/dL Red Cell Distribution Width 15.4 H 11.8-14.3 % Platelet Count 197 140-450 10^3/uL Mean Platelet Volume 8.1 6.9-10.8 fL Neutrophils (%) (Auto) 80.8 H 37.0-80.0 % Lymphocytes (%) (Auto) 5.7 L 10.0-50.0 % Monocytes (%) (Auto) 13.4 H 0.0-12.0 % Eosinophils (%) (Auto) 0.0 0.0-7.0 % Basophils (%) (Auto) 0.1 0.0-2.0 % Neutrophils # (Auto) 13.7 H 1.6-8.6 10 ^3/uL Lymphocytes # (Auto) 1.0 0.4-5.4 10 ^3/uL Monocytes # (Auto) 2.3 H 0-1.3 10 ^3/uL Eosinophils # (Auto) 0 0-0.8 10 ^3/uL Basophils # (Auto) 0 0-0.2 10 ^3/uL Nucleated Red Blood Cells 0.0 % Prothrombin Time 10.9 9.3-11.8 sec Prothrombin Time INR 1.03 0.9-1.15 Activated Partial Thromboplast Time 45.2 H 24.5-34.5 SEC Sodium Level 137 136-145 mmol/L Potassium Level 3.5 3.5-5.1 mmol/L Chloride Level 103 98-107 mmol/L Carbon Dioxide Level 23 20-31 mmol/L Anion Gap 11 5-15 Blood Urea Nitrogen 16 # 9-23 mg/dL Creatinine 0.87 0.700-1.30 mg/dL Glomerular Filtration Rate Calc 92 >90 mL/min BUN/Creatinine Ratio 18.4 10.0-20.0 Serum Glucose 127 H 74-106 mg/dL Hemoglobin A1c 5.7 <5.7 % A1C Calcium Level 9.5 8.7-10.4 mg/dL Magnesium Level 1.9 1.6-2.6 mg/dL Total Bilirubin 0.6 0.2-1.0 mg/dL Aspartate Amino Transferase (AST) 37 13-40 U/L Alanine Aminotransferase (ALT) 31 7-40 U/L Alkaline Phosphatase 89 46-116 U/L Troponin I High Sensitivity 3628 *H </=54 ng/L Total Protein 6.3 5.7-8.2 g/dL Albumin 4.0 3.2-4.8 g/dL Triglycerides Level 107 < 150 mg/dL Cholesterol Level 123 < 200 mg/dL LDL Cholesterol 50 < 100 mg/dL HDL Cholesterol 50 40-59 mg/dL Thyroid Stimulating Hormone (TSH) 0.10 L 0.55-4.78 uIU/mL Random Vancomycin Level 8.9 5-10 ug/mL Lactic Acid Level 1.8 0.4-2.0 mmol/L Urine Color Light-yellow Yellow Urine Clarity Clear Clear Urine pH 6.0 5.0-9.0 Urine Specific [place] 1.015 1.001-1.035 Urine Protein Trace H Negative Urine Ketones Negative Negative Urine Blood 2+ H Negative /uL Urine Nitrite Negative Negative Urine Bilirubin Negative Negative Urine Urobilinogen Normal Negative mg/dL Urine Leukocyte Esterase Negative Negative /uL Urine RBC 1 0 - 3 /hpf Urine Microscopic WBC < 1 0-3 /HPF Urine Squamous Epithelial Cells None seen <5 /hpf Urine Bacteria None seen None Seen /hpf Urine Hyaline Casts Few 0 - 2 /lpf Urine Glucose Normal Normal mg/dL Assessment NSTEMI, rule out coronary ischemia Severe aortic stenosis status post open heart surgery with bioprosthetic aortic valve replacement Severe pulmonary hypertension Moderate tricuspid regurgitation Mild aortic stenosis Rule out structural heart disease Aneurysmal dilatation of ascending aorta (4.2cm) Hypertension Dyslipidemia History of colon cancer with resection Obesity Plan/Recommendation We will continue with the following plan/recommendations (Dr. Cook): Case discussed with . Transthoracic echocardiogram reveals EF 55%, RVSP 70 mmHg. The patient denies any cardiac symptoms. Given patient's rising elevated troponin level, we will proceed with a nuclear stress test at first availability. In the meantime, continue with blood pressure control and lipid- lowering agent. Given CT finding of aneurysmal dilatation of ascending aorta at 4.2 cm, we will recommend tight blood pressure control and for the patient to undergo yearly CT angiogram. Thank you for allowing us to care for this patient. Please call with any questions or concerns. Critical care time spent: 43 minutes This medical document was created using an electronic medical record system with voice recognition software and computerized dictation system. Although this document has been carefully reviewed, there might still be some phonetic and typographical errors. Occasional wrong-word or ``sound-alike substitutions may have occurred due to the inherent limitations of voice recognition software. These areas are purely typographical due to imperfections of the software programs and do not reflect any compromise in the patient's medical care. Please read the chart carefully and recognize, using context, where these substitutions have occurred. Plan discussed with: Patient NYHA Physical activity limitations: NA Date of Service: Jan 30, 2025 Billing Provider: THA MARLEY Cardiology Common Codes: 09689-[id number] INP/OBS CARE (High) Cardiology Consultation Codes: 27923-[id number] CONSULT <45MIN THA MARLEY Jan 30, 2025 15:15
[2025-01-30 16:13] LABS: INR 1.06 (0.9-1.15); Partial Thromboplastin Time 65.8 SEC (24.5-34.5); Prothrombin Time 11.2 sec (9.3-11.8)
--- NOTE | 2025-01-30 18:23 | DVHPN2 ---
Reviewed: Care Plan, Labs, Medications, Previous Orders, Radiology Changes from previous H/P or p: No Changes General: Per HPI Eyes: No Pain, No Vision change, No Conjunctivae inflammation, No Eyelid inflammation, No Other, No Redness ENT: No Ear pain, No Ear discharge, No Nose pain, No Nose discharge, No Nose congestion, No Mouth pain, No Mouth swelling, No Throat pain, No Throat swelling, No Other Cardiovascular: No Chest Pain, No Palpitations, No Orthopnea, No Paroxysmal Noc. Dyspnea, No Edema, No Lt Headedness, No Other Respiratory: No Cough, No Dry, No Shortness of breath, No SOB with excertion, No Wheezing, No Hemoptysis, No Pleuritic Pain, No Sputum, No Other Gastrointestinal: No Nausea, No Vomiting, No Abdominal Pain, No Diarrhea, No Constipation, No Melena, No Hematochezia, No Other Genitourinary: No Dysuria, No Frequency, No Incontinence, No Hematuria, No Retention, No Other Musculoskeletal: No other; neck pain; No shoulder pain, No arm pain; back pain; No hand pain, No leg pain, No foot pain Skin: No Rash, No Lesions, No Jaundice, No Bruising, No Other Objective Vitals Vital Signs Date Time Temp Pulse Resp B/P (MAP) Pulse Ox O2 Delivery O2 Flow Rate FiO2 01/30/25 17:29 100.3 82 16 114/60 (78) 95 100.3 01/30/25 08:00 Room Air* 0 21 Intake/Output Intake and Output 01/30/25 07:00 Intake Total 3105 ml Output Total 300 ml Balance 2805 ml Intake Oral 450 ml IV Total 2655 ml Output Urine Total 300 ml General Appearance: Alert, Oriented X3, Cooperative HEENT: Atraumatic Cardiovascular: Regular rate, Normal S1, Normal S2 Abdomen: Normal bowel sounds Medications Current Medications Medications Dose Ordered Sig/Aleyda Route Start Time Stop Time Status Last Admin Dose Admin Vancomycin HCl 0 ml @ 0 mls/hr UD IV 01/29/25 15:30 Piperacillin Sod/ Tazobactam Sod 100 ml @ 25 mls/hr Q8HR IV 01/29/25 22:00 01/30/25 13:57 25 MLS/HR Atorvastatin Calcium 40 mg HS PO 01/29/25 22:00 01/29/25 22:06 40 MG Hydralazine HCl 10 mg Q6HP PRN IV 01/29/25 20:15 01/30/25 01:16 10 MG Sodium Chloride 1,000 ml @ 60 mls/hr [id number] IV 01/29/25 20:15 01/30/25 12:55 60 MLS/HR Acetaminophen/ Hydrocodone Bitart 1 tab Q4HP PRN PO 01/29/25 20:15 01/30/25 07:29 1 TAB Ondansetron HCl 4 mg Q4HP PRN IV 01/29/25 20:15 Docusate Sodium 100 mg BIDPRN PRN PO 01/29/25 20:15 Acetaminophen 650 mg Q6HP PRN PO 01/29/25 20:15 01/30/25 01:09 650 MG Nitroglycerin 0.4 mg Q5MINP PRN SL 01/29/25 22:15 Morphine Sulfate 2 mg Q30M PRN IV 01/29/25 22:15 Heparin Sodium/ Dextrose 250 ml @ 12 mls/hr [id number] IV 01/30/25 09:40 01/30/25 10:29 12 MLS/HR Vancomycin HCl 250 ml @ 250 mls/hr Q12H IV 01/30/25 12:00 01/30/25 12:55 250 MLS/HR Lisinopril 5 mg DAILY PO 01/31/25 10:00 Laboratory Results Laboratory Tests 01/30/25 05:35 Chemistry Test 01/30/25 05:35 Albumin 4.0 g/dL (3.2-4.8) Calcium Level 9.5 mg/dL (8.7-10.4) Magnesium Level 1.9 mg/dL (1.6-2.6) Total Protein 6.3 g/dL (5.7-8.2) Coagulation Test 01/29/25 22:20 01/30/25 05:35 01/30/25 15:40 Prothrombin Time 10.9 sec (9.3-11.8) 10.9 sec (9.3-11.8) 11.2 sec (9.3-11.8) Prothrombin Time INR 1.03 (0.9-1.15) 1.03 (0.9-1.15) 1.06 (0.9-1.15) Activated Partial Thromboplast Time 31.8 SEC (24.5-34.5) 45.2 SEC (24.5-34.5) H 65.8 SEC (24.5-34.5) H Lipid panel Test 01/30/25 05:35 Cholesterol Level 123 mg/dL (< 200) HDL Cholesterol 50 mg/dL (40-59) Triglycerides Level 107 mg/dL (< 150) Cardiac Markers Test 01/30/25 05:35 B-Type Natriuretic Peptide 407.90 pg/mL (0-100) LFT Test 01/30/25 05:35 Alanine Aminotransferase (ALT) 31 U/L (7-40) Alkaline Phosphatase 89 U/L (46-116) Aspartate Amino Transferase (AST) 37 U/L (13-40) Total Bilirubin 0.6 mg/dL (0.2-1.0) HgA1c, TSH Test 01/30/25 05:35 Hemoglobin A1c 5.7 % A1C (<5.7) Thyroid Stimulating Hormone (TSH) 0.10 uIU/mL (0.55-4.78) L Urinalysis Test 01/29/25 15:07 Urine Color Light-yellow (Yellow) Urine Clarity Clear (Clear) Urine pH 6.0 (5.0-9.0) Urine Specific [place] 1.015 (1.001-1.035) Urine Protein Trace (Negative) H Urine Ketones Negative (Negative) Urine Blood 2+ /uL (Negative) H Urine Nitrite Negative (Negative) Urine Bilirubin Negative (Negative) Urine Urobilinogen Normal mg/dL (Negative) Urine Leukocyte Esterase Negative /uL (Negative) Urine RBC 1 /hpf (0 - 3) Urine Microscopic WBC < 1 /HPF (0-3) Urine Squamous Epithelial Cells None seen /hpf (<5) Urine Bacteria None seen /hpf (None Seen) Urine Hyaline Casts Few /lpf (0 - 2) Urine Glucose Normal mg/dL (Normal) Microbiology Microbiology Date/Time Source Procedure Growth Status 01/29/25 16:05 Blood Blood Culture - Preliminary NO GROWTH AFTER 24 HOURS OF INCUBATION. Resulted Labs and/or images reviewed: Labs reviewed by me, Image(s) reviewed by me Assessment/Plan Assessment/Plan The patient is a 69-year-old male with past medical history of cancer, hyperlipidemia, and hypertension who presented to [facility] ED with complaint of generalized weakness. Patient was at [facility] for evaluation of elevated troponin of 0.94, having back pain, radiating to neck, headache, fatigue, getting worse today that prompted this visit. Patient was seen and evaluated in the ED, laboratory data shows WBC 22.1, platelets 234, sodium 133, potassium 3.9, BUN 26, creatinine 0.99, GFR 81, glucose 137, troponin 1851. 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 Patient was started on heparin drip, please see medication orders section in the computer. On my assessment, patient denied chest pain, no headache, no dizziness, no diaphoresis, no shortness of breaths, no nausea, no vomiting, no fever, no chills. Patient was admitted for further evaluation and medical management NSTEMI (non-ST elevated myocardial infarction) Generalized weakness Leukocytosis, unspecified hypertensive crisis 01/30/2025: continue with heparin drip i was notified that serum troponin became elevated. Discussed to with nursing to notify cardiology for further evaluation/intervention no active chest pain per pt. pt was sleeping during my round Plan discussed with: Patient My Orders Orders - KENNEDY TRENT DO Procedure Category Date Status Time Blood Culture ELIZABETH 01/30/25 In Process 13:33 Date of Service: Jan 30, 2025 Billing Provider: KENNEDY TRENT DO Common Visit Codes: [id number] INP/OBS CARE(HIGH) KENNEDY TRENT DO Jan 30, 2025 18:23
[2025-01-30 23:08] LABS: INR 1.03 (0.9-1.15); Partial Thromboplastin Time 65.8 SEC (24.5-34.5); Prothrombin Time 10.9 sec (9.3-11.8)
[2025-01-31] VITALS (8 sets, daily range): BP systolic 125–143; BP diastolic 55–74; PULSE 50–79; RESP 18–20; TEMP 36.4; O2SAT 92–99
--- NOTE | 2025-01-31 07:39 | ECG ---
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
[2025-01-31] MEDS: MORPHINE SULFATE INJ 2 MG/ml SYRG IV PRN (07:40)
[2025-01-31 07:41] LABS: INR 1.05 (0.9-1.15); Partial Thromboplastin Time 67.5 SEC (24.5-34.5); Prothrombin Time 11.1 sec (9.3-11.8)
[2025-01-31 08:04] LABS: Basophils # (auto) 0 10 ^3/uL (0-0.2); Basophils % (auto) 0.1 % (0.0-2.0); Eosinophils # (auto) 0 10 ^3/uL (0-0.8); Eosinophils % (auto) 0.1 % (0.0-7.0); Hematocrit 38.8 % (41.0-53.0); Hemoglobin 13.2 g/dL (13.5-17.5); Lymphocytes # (auto) 1.2 10 ^3/uL (0.4-5.4); Lymphocytes % (auto) 8.1 % (10.0-50.0); Mean Corpuscular Hemoglobin 27.3 pg (28.0-32.0); Mean Corpuscular Hgb Conc. 33.9 g/dL (32.0-36.0); Mean Corpuscular Volume 80.5 fL (80.0-100.0); Monocytes # (auto) 2.2 10 ^3/uL (0-1.3); Monocytes % (auto) 14.5 % (0.0-12.0); Neutrophils # (auto) 11.6 10 ^3/uL (1.6-8.6); Neutrophils % (auto) 77.2 % (37.0-80.0); Platelet Count (auto) 218 10^3/uL (140-450); Red Blood Cells 4.82 10^6/uL (4.5-5.90); Red Cell Distribution Width 15.4 % (11.8-14.3); White Blood Cell 15.1 10^3/uL (4.4-10.8)
--- NOTE | 2025-01-31 08:07 | ECG ---
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
[2025-01-31 09:11] LABS: Chloride 98 mmol/L (98-107)
[2025-01-31 09:12] LABS: Anion Gap 13 (5-15); Carbon Dioxide 23 mmol/L (20-31); Potassium 3.4 mmol/L (3.5-5.1); Sodium 134 mmol/L (136-145)
[2025-01-31 09:13] LABS: Calcium 9.2 mg/dL (8.7-10.4)
[2025-01-31 09:17] LABS: BUN/Creatinine Ratio 20.2 (10.0-20.0); Blood Urea Nitrogen 17 mg/dL (9-23)
[2025-01-31 09:26] LABS: Glucose 128 mg/dL (74-106)
[2025-01-31] MEDS: LISINOPRIL 5 MG TAB PO SCH (10:00)
--- NOTE | 2025-01-31 10:04 | ECG ---
[facility] Test Date: 2025-01-29 Test Time: 14:21:35 Pat Name: CHANDAN MELTON Department: ED Room: 0245T Gender: M Job Captain: DARLENE : 1955 Requested By: MIGNON BRIAN Order Number: [id number] Reading MD: Measurements Intervals [place] Rate: 111 P: 29 MO: 193 QRS: -55 QRSD: 81 T: 78 QT: 361 QTc: 491 Interpretive Statements Sinus tachycardia Multiple premature complexes, vent & supraven Abnormal R-wave progression, late transition Inferior infarct, old Baseline wander in lead(s) II Please click the below link to view image of tracing.
[2025-01-31 11:20] LABS: Free T3 2.59 pg/mL (2.3-4.2)
[2025-01-31 11:21] LABS: Free T4 (Free Thyroxine) 1.21 ng/dL (0.89-1.76)
[2025-01-31] MEDS ORDERED: TAMS0.4C39 PO (12:12)
[2025-01-31] MEDS ORDERED: SERT100T PO (12:12)
[2025-01-31] MEDS ORDERED: ROSU20TA56 PO (12:12)
[2025-01-31] MEDS ORDERED: FINA5TAB4 PO (12:12)
[2025-01-31] MEDS ORDERED: DOCU-94 PO (12:12)
[2025-01-31] MEDS ORDERED: METH50006 SL (12:12)
[2025-01-31] MEDS ORDERED: FERR325T20 PO (12:12)
[2025-01-31] MEDS ORDERED: ASPI-543 PO (12:12)
[2025-01-31] MEDS ORDERED: BENA10TA90 PO (12:12)
[2025-01-31] MEDS ORDERED: REGADENOSON 0.4 MG/5 ML SYRG IV ONE ×2 (13:04→14:15)
--- NOTE | 2025-01-31 14:02 | DVH ---
EXAM: CT HEAD WITHOUT CONTRAST HISTORY: new left sides weakness COMPARISON: None TECHNIQUE: Axial images of the head were obtained and reformatted in coronal and sagittal planes. All CT scans at this medical facility are performed using dose modulation techniques as appropriate t o a performed exam including the following: Automated exposure control was utilized; adjustment of th e MA and/or KV according to patient size; and use of iterative reconstruction technique. CT Dose: CTDI volume is 53.95 mGy. Dose-length product is 1082.43 mGy*cm FINDINGS: There is hyperdense subarachnoid hemorrhage seen in the suprasellar cistern, lamina terminalis cister n and bilateral sylvian cisterns, [id number]-right. There is subarachnoid hemorrhage extending into the left sylvian fissure. There is also a small amount of subarachnoid hemorrhage along the sup erior left frontal lobe. There is no evidence of mass, mass effect midline shift. There is no hydrocephalus. The visualized pa ranasal sinuses and mastoid air cells are clear. The calvarium is intact. IMPRESSION: 1. Hyperdense subarachnoid hemorrhage seen in the suprasellar cistern, lamina terminalis cistern and bilateral sylvian cisterns, [id number]-right. There is subarachnoid hemorrhage extending into the left sylvian fissure. 2. Small amount of subarachnoid hemorrhage along the superior left frontal lobe. Critical findings discussed with nurse Zachary by Dr. Jerrod Haynes via phone on 01/31/2025 01:59 PM. HS:Y
--- NOTE | 2025-01-31 14:32 | DVHSR ---
APPROVED REPORT Exam: Nuclear Stress Test BMI: 0 Stress Test Details HR Max Heart Rate (APMHR): 149.315777 bpm Target HR (85% APMHR): 126.271573 bpm BP ECG Stress ECG Conclusion infeiror wall infarct noted with karol infarct ischemia normal lvef lvef 62% basal lateral wall mild fixed defect noted abnormal study NM EXAM: Myocardial Perfusion REST/STRESS Imaging Protocol: Rest Tc-99m/Stress Tc-99m 1 day Resting Data Rest SPECT myocardial perfusion imaging was performed in supine position 60 minutes following the int ravenous injection of 12.7 mCi of Tc-99m Sestamibi. Time of rest injection: 1100 Time of rest imagin Administration Route: IV Administration Site: Left Wrist Pharmacologic Stress Pharmacologic stress test was performed by injecting Regadenoson 0.4 mg IV push followed by the intra venous injection of 36 mCi of Tc-99m Sestamibi. Time of stress injection: 1312 Time of stress imagin Administration Route: IV Administration Site: Left Wrist Gated Stress SPECT was performed 60 minutes after stress injection. The images were gated to evaluate regional wall motion and calculate left ventricular ejection fracti on. Stress only was performed in the Supine position. Nuclear Conclusion Nuclear Findings: positive for ischemia infeiror wall infarct noted with karol infarct ischemia normal lvef lvef 62% basal lateral wall mild fixed defect noted abnormal study
[2025-01-31] MEDS ORDERED: PROTAMINE SULFATE 50 MG in SODIUM CHL 0.9% 50 ML IV ONE (16:00)
--- NOTE | 2025-01-31 16:39 | DVHDS2 ---
Discharge Summary Date of Admission Jan 29, 2025 at 22:06 Date of Discharge: Jan 31, 2025 Labs/Diagnostic Data: Laboratory Results Test 01/31/25 06:19 01/30/25 21:05 01/30/25 15:40 01/30/25 05:35 White Blood Count 15.1 10^3/uL (4.4-10.8) Red Blood Count 4.82 10^6/uL (4.5-5.90) Hemoglobin 13.2 g/dL (13.5-17.5) Hematocrit 38.8 % (41.0-53.0) Mean Corpuscular Volume 80.5 fL (80.0-100.0) Mean Corpuscular Hemoglobin 27.3 pg (28.0-32.0) Mean Corpuscular Hemoglobin Concent 33.9 g/dL (32.0-36.0) Red Cell Distribution Width 15.4 % (11.8-14.3) Platelet Count 218 10^3/uL (140-450) Mean Platelet Volume 8.5 fL (6.9-10.8) Neutrophils (%) (Auto) 77.2 % (37.0-80.0) Lymphocytes (%) (Auto) 8.1 % (10.0-50.0) Monocytes (%) (Auto) 14.5 % (0.0-12.0) Eosinophils (%) (Auto) 0.1 % (0.0-7.0) Basophils (%) (Auto) 0.1 % (0.0-2.0) Neutrophils # (Auto) 11.6 10 ^3/uL (1.6-8.6) Lymphocytes # (Auto) 1.2 10 ^3/uL (0.4-5.4) Monocytes # (Auto) 2.2 10 ^3/uL (0-1.3) Eosinophils # (Auto) 0 10 ^3/uL (0-0.8) Basophils # (Auto) 0 10 ^3/uL (0-0.2) Nucleated Red Blood Cells 0.0 % Prothrombin Time 11.1 sec (9.3-11.8) Prothrombin Time INR 1.05 (0.9-1.15) Activated Partial Thromboplast Time 67.5 SEC (24.5-34.5) Sodium Level 134 mmol/L (136-145) Potassium Level 3.4 mmol/L (3.5-5.1) Chloride Level 98 mmol/L (98-107) Carbon Dioxide Level 23 mmol/L (20-31) Anion Gap 13 (5-15) Blood Urea Nitrogen 17 mg/dL (9-23) Creatinine 0.84 mg/dL (0.700-1.30) Glomerular Filtration Rate Calc 93 mL/min (>90) BUN/Creatinine Ratio 20.2 (10.0-20.0) Serum Glucose 128 mg/dL (74-106) Calcium Level 9.2 mg/dL (8.7-10.4) Vancomycin Level Trough 16.8 ug/mL (5-10) Troponin I High Sensitivity 3042 ng/L (</=54) Free Thyroxine (T4) Calculated 1.21 ng/dL (0.89-1.76) Free Triiodothyronine (T3) pg/mL 2.59 pg/mL (2.3-4.2) Hemoglobin A1c 5.7 % A1C (<5.7) Magnesium Level 1.9 mg/dL (1.6-2.6) Total Bilirubin 0.6 mg/dL (0.2-1.0) Aspartate Amino Transferase (AST) 37 U/L (13-40) Alanine Aminotransferase (ALT) 31 U/L (7-40) Alkaline Phosphatase 89 U/L (46-116) B-Type Natriuretic Peptide 407.90 pg/mL (0-100) Total Protein 6.3 g/dL (5.7-8.2) Albumin 4.0 g/dL (3.2-4.8) Triglycerides Level 107 mg/dL (< 150) Cholesterol Level 123 mg/dL (< 200) LDL Cholesterol 50 mg/dL (< 100) HDL Cholesterol 50 mg/dL (40-59) Thyroid Stimulating Hormone (TSH) 0.10 uIU/mL (0.55-4.78) Random Vancomycin Level 8.9 ug/mL (5-10) Test 01/29/25 16:05 01/29/25 15:07 Lactic Acid Level 1.8 mmol/L (0.4-2.0) Urine Color Light-yellow (Yellow) Urine Clarity Clear (Clear) Urine pH 6.0 (5.0-9.0) Urine Specific [place] 1.015 (1.001-1.035) Urine Protein Trace (Negative) Urine Ketones Negative (Negative) Urine Blood 2+ /uL (Negative) Urine Nitrite Negative (Negative) Urine Bilirubin Negative (Negative) Urine Urobilinogen Normal mg/dL (Negative) Urine Leukocyte Esterase Negative /uL (Negative) Urine RBC 1 /hpf (0 - 3) Urine Microscopic WBC < 1 /HPF (0-3) Urine Squamous Epithelial Cells None seen /hpf (<5) Urine Bacteria None seen /hpf (None Seen) Urine Hyaline Casts Few /lpf (0 - 2) Urine Glucose Normal mg/dL (Normal) Other Laboratory Tests 01/31/25 06:19 Brief Hx & Hospital Course: The patient is a 69-year-old male with past medical history of cancer, hyperlipidemia, and hypertension who presented to [facility] ED with complaint of generalized weakness. Patient was at [facility] for evaluation of elevated troponin of 0.94, having back pain, radiating to neck, headache, fatigue, getting worse today that prompted this visit. Patient was seen and evaluated in the ED, laboratory data shows WBC 22.1, platelets 234, sodium 133, potassium 3.9, BUN 26, creatinine 0.99, GFR 81, glucose 137, troponin 1851. 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 Patient was started on heparin drip, please see medication orders section in the computer. On my assessment, patient denied chest pain, no headache, no dizziness, no diaphoresis, no shortness of breaths, no nausea, no vomiting, no fever, no chills. Patient was admitted for further evaluation and medical management NSTEMI (non-ST elevated myocardial infarction) Generalized weakness Leukocytosis, unspecified hypertensive crisis Druing the time pt was being treated at [facility], pt was placed on heparin drip by cardiology. During transport to a [facility] for a stress test procedure, pt complained of left sided numbness/weakness. A CT head was ordered and completed. Pt was found to have subachranoid hemorrhage and was transported by air to a nearby hospital for HLOC. [facility] and [facility] both accepted the pt. PT was flown out to [facility] at Discharge: Stable Final Diagnosis/Problems List Hyperdense subarachnoid hemorrhage Discharge Disposition: Acute Care Facility Discharge Instruct/Medications Diet: See Comment Diet comment: NPO Activity: Bed rest Discharge Statement: "Patient was advised to return to the ER or call 911 if any headaches, dizziness, shortness of breath, chest pain, abdominal pain, bleeding, fevers, or worsening of medical condition. Patient was counseled about treatment plan, medications, possible side effects, patientverbalized understanding. All questions were answered to the best of my ability. This discharge took greater then 30 minutes in planning, reviewing documentation, counseling the patient, and discussing with other team members." ASSESSMENT ASSESSMENT Assessment Hyperdense subarachnoid hemorrhage Date of Service: Jan 31, 2025 Billing Provider: KENNEDY TRENT DO Common Visit Codes: [id number] DISCH DAY >30min KENNEDY TRENT DO Jan 31, 2025 16:39
--- NOTE | 2025-01-31 16:40 | ECG ---
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
--- NOTE | 2025-01-31 17:39 | ECG ---
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
[2025-01-31] MEDS ORDERED: hydrALAZINE HCL 10 MG TAB PO SCH (18:00)
== END 2025-01-31 17:40 | disposition short-term general hospital (02) | DRG 64 ==
LOC: EDBD 14:03 → ER 14:03 → OVERFLOW 22:06 → TELE-EAST 22:42
PROVIDERS: ADMIT Internal Medicine; ATTEND Internal Medicine
DX: I60.9 Nontraumatic subarachnoid hemorrhage, unspecified (principal); I21.4 Non-ST elevation (NSTEMI) myocardial infarction; I16.9 Hypertensive crisis, unspecified; I35.0 Nonrheumatic aortic (valve) stenosis; I71.21 Aneurysm of the ascending aorta, without rupture; I07.1 Rheumatic tricuspid insufficiency; E66.9 Obesity, unspecified; E78.5 Hyperlipidemia, unspecified; I10 Essential (primary) hypertension; I27.20 Pulmonary hypertension, unspecified; I49.3 Ventricular premature depolarization; Z90.49 Acquired absence of other specified parts of digestive tract; Z95.1 Presence of aortocoronary bypass graft; Z85.038 Personal history of other malignant neoplasm of large intestine; Z95.3 Presence of xenogenic heart valve; D72.829 Elevated white blood cell count, unspecified; Z68.34 Body mass index [BMI] 34.0-34.9, adult
CPT/HCPCS: 36415; 70450; 71045; 71275; 78452; 80048; 80053; 80061; 80202; 81001; 82565; 83036; 83605; 83735; 83880; 84439; 84443; 84481; 84484; 85025; 85610; 85730; 87040; 93005; 93017; 93306; 96361; 96365; 96372; 96375; 99291; G0378; J2405; J2543